=== PATIENT | male | born 1985 | race Caucasian/White ===

== ENCOUNTER 2018-03-25 21:12 | Emergency (ER) | payer MEDICAID ==
[2018-03-25] MEDS: HYDROCODONE/APAP (10/325) TAB PO (22:50)
[2018-03-25] MEDS: ONDANSETRON (ODT) 4 MG TAB ODT (22:50)
== END 2018-03-26 00:13 | disposition home or self-care (01) ==
LOC: FTE 03-26 00:13
DX: S00.81XA Abrasion of other part of head, initial encounter (principal); S52.531A Colles' fracture of right radius, initial encounter for closed fracture; S52.691A Other fracture of lower end of right ulna, initial encounter for closed fracture; W01.198A Fall on same level from slipping, tripping and stumbling with subsequent striking against other object, initial encounter; Y92.9 Unspecified place or not applicable
CPT/HCPCS: 29125; 73110-RT; 99283-25